=== PATIENT | female | born 1955 | race Caucasian/White ===

== ENCOUNTER → 2024-07-01 | Outpatient (RCR) | payer MEDICARE ==
[~2024-07-01] MED LIST: AMLODIPINE BESY10 MG PO; ASPIR 8181 MG PO; ATORVASTATIN CA20 MG PO; HYDROCHLOROTHIA25 MG PO; IRON PO; NEUPRO1 EAC2 TD; OMEPRAZOLE20 M1 PO; TIROSINT50 MCG PO
== END ==
LOC: OT 06-06 10:22
PROVIDERS: ATTEND Physician Assistant
DX: S52.532D Colles' fracture of left radius, subsequent encounter for closed fracture with routine healing (principal); M79.642 Pain in left hand; M25.642 Stiffness of left hand, not elsewhere classified; M25.532 Pain in left wrist; M25.632 Stiffness of left wrist, not elsewhere classified; R53.1 Weakness; M25.442 Effusion, left hand; M25.432 Effusion, left wrist

== ENCOUNTER 2024-07-06 06:25 | Outpatient (RCR) | payer MEDICARE | END 2024-08-01 | LOC: OT 06:25 | PROVIDERS: ATTEND Physician Assistant | DX: S52.532D Colles' fracture of left radius, subsequent encounter for closed fracture with routine healing (principal); M79.642 Pain in left hand; M25.642 Stiffness of left hand, not elsewhere classified; M25.532 Pain in left wrist; M25.632 Stiffness of left wrist, not elsewhere classified; M25.442 Effusion, left hand; M25.432 Effusion, left wrist ==